=== PATIENT | male | born 1960 | race Caucasian/White ===

== ENCOUNTER 2018-08-02 18:42 | Inpatient (IN) | payer OTHER, MEDICAID ==
[~2018-08-02] VITALS: Ht 167.6 cm; Wt 63.2 kg
[~2018-08-02 18:42] MED LIST: VAS1025 PO
[2018-08-02 19:27] LABS: PLATELET COUNT 283 x10^3mcL (130-400); RED CELL DISTRIBUTION WIDTH 12.4 % (11.5-14.5)
[2018-08-02 19:43] LABS: BAND NEUTROPHIL 9 % (0-10); BASOPHIL 0 % (0-2); MONOCYTE 2 % (0-7); PLATELET MORPHOLOGY PLATELETS NORMAL; SEGMENTED NEUTROPHILS 87 % (37-75); rbc morphology (normal/abnorm) NORMAL (NORMAL)
[2018-08-02 19:53] LABS: CALCIUM 8.4 mg/dL (8.5-10.1); CARBON DIOXIDE 23.1 mmol/L (21-32); CHLORIDE SERUM 104 mmol/L (98-107); CREATININE SERUM 1.2 mg/dL (0.7-1.3); GFR1 > 60 mL/min; GLUCOSE SERUM 154 mg/dL (74-106); POTASSIUM SERUM 4.4 mmol/L (3.5-5.1); SODIUM SERUM 141 mmol/L (136-145)
[2018-08-02 20:00] LABS: ALBUMIN 2.9 g/dL (3.4-5.0); ALKALINE PHOSPHATASE 119 U/L (46-116); ALT/SGPT 54 U/L (16-63); AST/SGOT 46 U/L (15-37); BILIRUBIN TOTAL 0.5 mg/dL (0.20-1.00)
[2018-08-02 20:41] LABS: UA SPECIFIC GRAVITY 1.025 (1.005-1.035); microscopic required? YES; urine erythrocyte 1+ (NEGATIVE)
[2018-08-02] MEDS ORDERED: SIMVASTATIN20 M1 PO (21:18)
[2018-08-03] VITALS (7 sets, daily range): BP systolic 102–142; BP diastolic 65–82; Ht 167.6 cm; Wt 63.2 kg
[2018-08-03 00:02] LABS: MAGNESIUM 1.8 mg/dL (1.8-2.4); PHOSPHOROUS 2.2 mg/dL (2.5-4.9)
[2018-08-03 00:07] LABS: CHOLESTEROL/HDL RATIO 2.9
[2018-08-03 06:51] LABS: PLATELET COUNT 227 x10^3mcL (130-400); RED CELL DISTRIBUTION WIDTH 12.4 % (11.5-14.5)
[2018-08-03 06:57] LABS: BASOPHIL % 0 % (0-2)
[2018-08-03 07:32] LABS: CALCIUM 8.3 mg/dL (8.5-10.1); CARBON DIOXIDE 26.4 mmol/L (21-32); CHLORIDE SERUM 112 mmol/L (98-107); CREATININE SERUM 0.9 mg/dL (0.7-1.3); GFR1 > 60 mL/min; GLUCOSE SERUM 103 mg/dL (74-106); MAGNESIUM 2.1 mg/dL (1.8-2.4); PHOSPHOROUS 3.1 mg/dL (2.5-4.9); POTASSIUM SERUM 4.1 mmol/L (3.5-5.1); SODIUM SERUM 148 mmol/L (136-145)
[2018-08-04 06:26] VITALS: BP 145/89
[2018-08-04 07:13] LABS: PLATELET COUNT 304 x10^3mcL (130-400); RED CELL DISTRIBUTION WIDTH 12.3 % (11.5-14.5)
[2018-08-04 07:14] LABS: BASOPHIL % 0 % (0-2)
[2018-08-04 07:28] VITALS: BP 124/75
[2018-08-04 08:38] LABS: CALCIUM 8.9 mg/dL (8.5-10.1); CARBON DIOXIDE 28.1 mmol/L (21-32); CHLORIDE SERUM 105 mmol/L (98-107); CREATININE SERUM 0.9 mg/dL (0.7-1.3); GFR1 > 60 mL/min; GLUCOSE SERUM 109 mg/dL (74-106); MAGNESIUM 2.3 mg/dL (1.8-2.4); PHOSPHOROUS 3.4 mg/dL (2.5-4.9); POTASSIUM SERUM 3.6 mmol/L (3.5-5.1); SODIUM SERUM 144 mmol/L (136-145)
[2018-08-04 12:04] VITALS: BP 130/74
[2018-08-04 15:57] VITALS: BP 117/75
[2018-08-04 21:26] VITALS: BP 128/88
[2018-08-05 05:30] VITALS: BP 119/98
[2018-08-05 06:17] LABS: BASOPHIL % 0.1 % (0-2); PLATELET COUNT 338 x10^3mcL (130-400); RED CELL DISTRIBUTION WIDTH 12.4 % (11.5-14.5)
[2018-08-05 06:21] LABS: CALCIUM 8.9 mg/dL (8.5-10.1); CARBON DIOXIDE 29.3 mmol/L (21-32); CHLORIDE SERUM 103 mmol/L (98-107); GFR1 > 60 mL/min; GLUCOSE SERUM 110 mg/dL (74-106); MAGNESIUM 2.3 mg/dL (1.8-2.4); POTASSIUM SERUM 4.1 mmol/L (3.5-5.1); SODIUM SERUM 140 mmol/L (136-145)
[2018-08-05] MEDS ORDERED: LEVAQUIN750 MG PO (09:40)
[2018-08-05 10:20] VITALS: BP 146/88
== END 2018-08-05 12:06 | disposition home or self-care (01) | DRG 871 ==
LOC: ED 18:42 → DU 22:38
PROVIDERS: Emergency Medicine; ADMIT Internal Medicine
DX: A41.9 Sepsis, unspecified organism (principal); N17.0 Acute kidney failure with tubular necrosis; R53.2 Functional quadriplegia; E44.0 Moderate protein-calorie malnutrition; G93.1 Anoxic brain damage, not elsewhere classified; R65.20 Severe sepsis without septic shock; R80.9 Proteinuria, unspecified; E78.5 Hyperlipidemia, unspecified; I10 Essential (primary) hypertension; E83.51 Hypocalcemia; E78.00 Pure hypercholesterolemia, unspecified; Z99.3 Dependence on wheelchair; Z68.22 Body mass index [BMI] 22.0-22.9, adult
CPT/HCPCS: 87804; 92526-GN; 92610; J1644; J2405; J2543; J3490; J7030; J7070; J7620; Q0092

== ENCOUNTER 2018-08-11 00:15 | Emergency (ER) | payer OTHER, MEDICAID ==
[~2018-08-11] VITALS: Ht 170.2 cm; Wt 64.9 kg
[~2018-08-11 00:15] MED LIST changes: +LEVAQUIN750 MG PO; +SIMVASTATIN20 M1 PO
[2018-08-11 00:30] VITALS: Ht 170.2 cm; Wt 64.9 kg
[2018-08-11 01:38] LABS: BASOPHIL % 0.4 % (0-2); RED CELL DISTRIBUTION WIDTH 12.9 % (11.5-14.5)
[2018-08-11 01:39] LABS: PLATELET COUNT 624 x10^3mcL (130-400)
[2018-08-11 01:40] LABS: CARBON DIOXIDE 23.4 mmol/L (21-32); CHLORIDE SERUM 105 mmol/L (98-107); CREATININE SERUM 1.3 mg/dL (0.7-1.3); GFR1 > 60 mL/min; GLUCOSE SERUM 89 mg/dL (74-106); POTASSIUM SERUM 4.6 mmol/L (3.5-5.1); SODIUM SERUM 140 mmol/L (136-145)
[2018-08-11 01:45] LABS: ALKALINE PHOSPHATASE 98 U/L (46-116); ALT/SGPT 47 U/L (16-63); AST/SGOT 42 U/L (15-37); BILIRUBIN TOTAL 0.38 mg/dL (0.20-1.00); TOTAL PROTEIN, SERUM 8.1 g/dL (6.4-8.2)
[2018-08-11 01:47] LABS: ALBUMIN 3.2 g/dL (3.4-5.0)
[2018-08-11 03:53] VITALS: BP 142/102
[2018-08-11 05:23] LABS: microscopic required? NO
[2018-08-11 05:36] LABS: UA SPECIFIC GRAVITY >=1.030 (1.005-1.035); urine erythrocyte NEGATIVE (NEGATIVE)
== END 2018-08-11 03:53 | disposition home or self-care (01) ==
LOC: ED 00:15
PROVIDERS: Emergency Medicine
DX: J18.9 Pneumonia, unspecified organism (principal); R45.1 Restlessness and agitation; L03.116 Cellulitis of left lower limb; I10 Essential (primary) hypertension; Z98.890 Other specified postprocedural states
CPT/HCPCS: 83880; J0696; J7030; Q0092